=== PATIENT | male | born 1960 | race Caucasian/White ===

== ENCOUNTER 2019-07-20 17:57 | Emergency (ER) | payer BC ==
[2019-07-20 19:08] LABS: BLOOD UREA NITROGEN,BUN 25 mg/dL (7.0-18.0); CARBON DIOXIDE,CO2 28.7 mmol/L (21.0-32.0); CHLORIDE,CL 103 mmol/L (98-107); GLUCOSE RANDOM 222 mg/dL (74-106); POTASSIUM,K 4.4 mmol/L (3.5-5.1); SODIUM,NA 141 mmol/L (136-148)
--- NOTE | 2019-07-20 19:17 | CR ---
INDICATION: Shortness of breath TECHNIQUE: Chest 2 views COMPARISON: June 15, 2019 FINDINGS: Cardiovascular and mediastinum: Heart size and vasculature are normal in caliber and appearance. Lungs and pleural spaces: Lungs are clear. No sign of infiltrate or mass. No sign of pleural effusion. No pneumothorax. Bones and soft tissues: No significant findings. IMPRESSION: No acute findings and no significant changes from the prior exam. Dictated by Josiah Gaines MD @ Jul 20 2019 7:13PM Signed by Dr. Josiah Gaines @ Jul 20 2019 7:15PM
--- NOTE | 2019-07-20 19:19 | EDM.PDOC ---
ED HPI GENERAL MEDICAL PROBLEM - General Chief Complaint: Respiratory Problem Stated Complaint: BREATHING PROBLEM Time Seen by Provider: 07/20/19 18:16 - History of Present Illness INITIAL COMMENTS - FREE TEXT/NARRATIVE: HPI 58-year-old obese male presents for evaluation of several months of chronic nonproductive cough as well as periodic (and apparently worsening) episodes where he will await from his sleep feeling short of breath, patient notes decreased symptoms when he sleeps semi-upright in a chair. No recent weight gain. No history of DVT or PE. * Smoking: denies * Asthma: denies * Recent URI: denies * Meds: denies DIVYA-I and beta blockers * GERD: denies dyspepsia, PPI/ranitidine * Sinus: denies congestion or post-nasal drip * B-Sx: denies night sweats, weight loss, fever M/S/F/SocHx notable for: please see HPI; remainder reviewed with patient and in chart. ROS: Negative constitutional, eye, cardiovascular, pulmonary, GI, , MSK, skin , neurologic, psychiatric, endocrine unless noted in the HPI. Exam Gen: Pleasant, non-toxic appearing, resting comfortably. HEENT: NC, AT, PEERL, EOMI, oropharynx visually normal without postnasal drip. Resp: Clear to auscultation bilaterally, normal work of breathing, no accessory muscle usage. Card: Regular rate and rhythm with no murmurs, rubs, or gallops, extremities warm and well perfused. GI: Non-tender to palpation throughout all quadrants, non-distended, no rebound or guarding. : No suprapubic tenderness to palpation. MSK: No visible deformities, strength and tone without visually appreciable deficit. Skin: Normal color with no visible lesions. Neuro: alert and oriented 3, no facial asymmetry, vision and hearing WNL. Psych: Mood and affect appropriate. Labs / Imaging: WBC 9.44, HB 14.3, d-dimer <0.19, sodium 141, potassium 4.4, glucose 222, troponin <0.050, BNP pending. EKG: SR 10 4 bpm, no ST segment elevations or depressions, no LBBB. CXR: No acute cardiopulmonary disease process. No focal infiltrate, cardiomegaly , rib fractures, or mediastinal widening, lung markings extend to the periphery bilaterally and there are no deep sulci. Radiologist's read pending. MDM Previous chart, nursing note, labs, imaging, and vitals reviewed. A: 58-year-old obese male presents for evaluation of several months of chronic nonproductive cough as well as periodic (and apparently worsening) episodes where he will await from his sleep feeling short of breath, patient notes decreased symptoms when he sleeps semi-upright in a chair. DDx: pneumonia, pericardial effusion, pleural effusion, COPD, asthma, DIVYA inhibitor induced cough, GERD, post viral cough, bronchitis, malignancy/neoplasm , heart failure, foreign body, pertussis, DASH. Evaluation: overall suspect the patients symptoms are secondary to DASH given his shortness of breath that occurs only while supine is resolved by sending out. No clinical features consistent with heart failure. Given a Wells score of 1.5 the negative d-dimer is appropriate for PE rule out/risk stratification. No features consistent with GERD, post viral cough, bronchitis, and on my interpretation of the chest x-ray there are no masses, features of heart failure , or effusions. Patient does not take an DIVYA inhibitor or ARB. Given the absence of any daytime provocation with physical activity doubt unstable angina , by clinical Gestalt as well as heart score the patient is low(er) and is appropriate for outpatient stress testing if necessary. Disposition: patient care transfer to the overnight provider pending chest x- ray read and BNP. Anticipate discharge with instructions for PCP follow-up and recommendation for sleep study. Impression: cough, nocturnal SOP. (please reference below for remainder of encounter information) Wilfredo' (Signs & Sx of DVT - 0, PE is #1 or equally likelihood - 0, HR > 100 - 1.5, immobilization of >=3 days or surgery in last 28 days - 0, prior DVT or PE - 0, hemoptysis - 0, malignancy w/ tx in last 6 mo or palliative - 0). HEART value (Hx - 0, EKG - 0, age - 1, risk factors - 1, troponin - 0; 30 day MACE: less than or equal to 1.7%). chest Pain Score (Numeric/FACES): 3 - Related Data Allergies Allergy/AdvReac Type Severity Reaction Status Date / Time No Known Allergies Allergy Verified 07/20/19 18:23 Home Meds: Home Meds Amitriptyline HCl 75 mg PO BEDTIME 02/12/19 [History] Venlafaxine HCl [Venlafaxine HCl ER] 75 mg PO DAILY 02/12/19 [History] metFORMIN HCl [Metformin HCl] 1,000 mg PO QAM 02/12/19 [History] Penicillin V Potassium 500 mg PO QID 07/20/19 [History] metFORMIN [Glucophage XR] 500 mg PO QPM 07/20/19 [History] Past Medical History HEENT History: Reports: Allergic Rhinitis Other HEENT History: has a partial denture but doesn't wear it Cardiovascular History: Reports: Hypertension Respiratory History: Reports: Asthma Other Respiratory History: will get testing for sleep apnea Gastrointestinal History: Reports: GERD Musculoskeletal History: Reports: Fracture Other Musculoskeletal History: states he has bone spurs in his neck, hx of fx ribs and wrist Psychiatric History: Reports: Anxiety Endocrine/Metabolic History: Reports: Diabetes, Type II, Obesity/BMI 30+ - Infectious Disease History Infectious Disease History: Reports: Chicken Pox, Measles, Mumps - Past Surgical History Head Surgeries/Procedures: Reports: None Cardiovascular Surgical History: Reports: None Respiratory Surgical History: Reports: Thoracentesis Other Respiratory Surgeries/Procedures: hx of multiple fx ribs with thoracentesis GI Surgical History: Reports: Appendectomy, Hernia, Inguinal Other GI Surgeries/Procedures: bilateral inguinal hernia repairs Male Surgical History: Reports: Other (See Below) Other Male Surgeries/Procedures: repair of urethral stricture Endocrine Surgical History: Reports: None Musculoskeletal Surgical History: Reports: Carpal Tunnel Social & Family History - Family History Family Medical History: Noncontributory - Tobacco Use Smoking Status *Q: Former Smoker Used Tobacco, but Quit: Yes Month/Year Tobacco Last Used: 2018 - Caffeine Use Caffeine Use: Reports: Coffee - Recreational Drug Use Recreational Drug Use: No ED ROS GENERAL - Review of Systems Review Of Systems: See Below ED EXAM, GENERAL - Physical Exam Exam: See Below Course - Vital Signs Last Recorded V/S: Last Vital Signs Temp 35.8 C L 07/20/19 18:15 Pulse 104 H 07/20/19 18:15 Resp 22 H 07/20/19 18:15 BP 166/108 H 07/20/19 18:15 Pulse Ox 95 07/20/19 18:15 - Orders/Labs/Meds Orders: Active Orders 24 hr Category Date Time Status EKG Documentation Completion [RC] STAT Care 07/20/19 18:29 Active B-TYPE NATRIURETIC PEPTIDE,BNP [CHEM] Stat Lab 07/20/19 18:40 Received Labs: Laboratory Tests 07/20/19 07/20/19 07/20/19 Range/Units 18:40 18:40 18:40 WBC 9.44 (4.0-11.0) K/uL RBC 5.03 (4.50-5.90) M/uL Hgb 14.3 (13.0-17.0) g/dL Hct 44.2 (38.0-50.0) % MCV 87.9 (80.0-98.0) fL MCH 28.4 (27.0-32.0) pg MCHC 32.4 (31.0-37.0) g/dL RDW Std Deviation 41.4 (28.0-62.0) fl RDW Coeff of Todd 13 (11.0-15.0) % Plt Count 252 (150-400) K/uL MPV 9.90 (7.40-12.00) fL Neut % (Auto) 66.1 (48.0-80.0) % Lymph % (Auto) 25.8 (16.0-40.0) % [place] % (Auto) 7.8 (0.0-15.0) % Eos % (Auto) 0.1 (0.0-7.0) % Baso % (Auto) 0.2 (0.0-1.5) % Neut # (Auto) 6.2 H (1.4-5.7) K/uL Lymph # (Auto) 2.4 (0.6-2.4) K/uL [place] # (Auto) 0.7 (0.0-0.8) K/uL Eos # (Auto) 0.0 (0.0-0.7) K/uL Baso # (Auto) 0.0 (0.0-0.1) K/uL Nucleated RBC % 0.0 /100WBC Nucleated RBCs # 0 K/uL D-Dimer, Quantitative < 0.19 (0.0-0.50) mg/L FEU Sodium 141 (136-148) mmol/L Potassium 4.4 (3.5-5.1) mmol/L Chloride 103 (98-107) mmol/L Carbon Dioxide 28.7 (21.0-32.0) mmol/L BUN 25 H (7.0-18.0) mg/dL Creatinine 1.1 (0.8-1.3) mg/dL Est Cr Clr Drug Dosing 82.72 mL/min Estimated GFR (MDRD) > 60.0 ml/min Glucose 222 H (74-106) mg/dL Calcium 9.2 (8.5-10.1) mg/dL Troponin I < 0.050 (0.000-0.056) ng/mL Departure - Departure Time of Disposition: 19:18 Disposition: Home, Self-Care 01 Clinical Impression: Cough - Discharge Information Referrals: Chelita Kimball PA [Primary Care Provider] - Additional Instructions: You were in seen in the [facility] Emergency Department for evaluation of cough and nighttime shortness breath. The time of your evaluation no clear cause of your symptoms were found, however you are symptoms are strongly suspected to be due to your obstructive sleep apnea. Please follow-up your primary care provider within 2 days for further evaluation care including consideration of a sleep study and possibly a stress test. Please read and follow all of the instructions below. When calling for follow-up care, please make the office aware that this follow- up is from your recent emergency room visit. If for any reason you are refused follow-up, please contact the [facility] Emergency Department at and asked to speak to the emergency department charge nurse. Your care today was limited to identifying and treating emergent medical problems only. Many people have subtle differences in their test results that require follow up with their outpatient physician(s) to correctly determine if this represents a normal variation or concerning abnormality with respect to your specific health. The care given to you today was limited to identifying and treating emergent medical problems - you need to request a copy of all of your medical records from today's visit and follow up with your outpatient physician(s) to review both today's visit and your overall health. If you have any new symptoms or if you are at all concerned about your health please return immediately to the emergency department. Prescriptions: If you are uninsured or have financial difficulties with filling your prescription(s), you may consider using a free pharmacy discount service such as [employer] ([facility]) or [employer] ([employer]). These services allow you to search for a medication on your phone (or computer) and obtain a coupon that usually has a significant discount from the list maier at a pharmacy. Your physician as well as [facility] does not have a financial relationship with either of these services. You may also wish to speak with your physician to determine if lower cost prescriptions are possible. Obtaining primary care: 1. [facility] provides pediatrics (children), family medicine (children, adults, and some obstetrical care), and internal medicine (adults). Further specialty care is also available. Same day appointments are available. They may be contacted at [phone] and are open Tuesday through Tuesday 8 AM to 5 PM. The [facility] are located at [facility], [address] [place] [address]. 2. [facility] offers family medicine, internal medicine, [facility], and further specialty care. [facility] may be contacted at [phone]. [facility] is located at [address] [place] [address]. 3. If you have health insurance, please also contact your insurer for a list of accepting providers under your policy, you may contact these providers for further health care. Occupational health: Work related injuries may consider following up with [facility], . Occupational health services are located at [address] [place] [address] and are open Tuesday through Tuesday from 7: 30 am to 5:00 pm. Obstetrical and Gynecological Care: [facility], , Tuesday through Tuesday 8 AM to 5 PM. [address] [place] [address]. Eyecare: If you have an eye injury you should follow up with your solutions developer or with [facility], at [phone] or [phone] , they are located at [address] [place] [id number]. Dental Care Pardeep Ferrera DDS. [address] [facility].[place], [place]. Ph. [phone] Froylan Ferrera DDS MS. [address] [facility] [address], [place], [place]. Ph. Vipin Ohara DDS. 10 04/[address] [place] [address]. Ph. [phone] Mayank Montanez DDS. [address] [facility] [address] [place], [place]. Ph. [phone] Vinay Herrera DDS PC. [address] [facility] [address] [place], [place]. Ph. [phone] Genie Botello DDS. [address] [facility] [address] [facility]. Ph. [phone] [facility]. [address] [place], [place]. Ph. [phone] [facility]. [address] [place] [address], [place], [place]. Ph. [phone] [facility] [address] [place] [address]. Ph. [phone] [facility]. [address] [place] [address] [address] [place], [place]. Ph. [facility]. [address] [place], [place]. Ph. You were seen in the emergency department today for evaluation of your chronic cough. No clear cause of your cough was identified today during your evaluation. As we discussed, there are many possible causes of long-term coughing, these range from minor but annoying causes - such as acid reflux and allergic postnasal drip - to more serious causes such as fungal infections, heart problems, or even cancer. Therefore, you must follow-up your primary care physician for further evaluation and care. When you follow up with your primary care physician please also review your pending laboratory studies. You may do the following treatments to reduce your symptoms: Setx-lqh-[id number] cough medications containing dextromethorphan may reduce the frequency and severity of your coughing. Please take as directed on the bottle. Please read all warnings on the bottle. Do not take this medication if you have any allergies to any of the ingredients listed on the bottle. Please stay well-hydrated and get adequate rest. If you are a smoker please stop smoking. Aoln-[id number]-[id number] lozenges or tea with honey may be used for sore throat. Please return to the emergency department if any of the following occur: Increasing fever. Worsening cough or a cough that becomes productive of thick sputum. A cough that temporarily gets better and then over the several days get significantly worse. This may occur if you developed a bacterial pneumonia following your viral infection. This rarely occurs and there is no prevention at this point in your infection. Chest pain. Shortness of breath or difficulty breathing. If you are otherwise concerned about your health. Sepsis Event Note - Evaluation Sepsis Screening Result: No Definite Risk - Focused Exam Vital Signs: Vital Signs Temp Pulse Resp BP Pulse Ox 07/20/19 18:15 35.8 C L 104 H 22 H 166/108 H 95 Date Exam was Performed: 07/20/19 Time Exam was Performed: 19:18 - My Orders Last 24 Hours: My Active Orders 07/20/19 18:29 EKG Documentation Completion [RC] STAT 07/20/19 18:40 B-TYPE NATRIURETIC PEPTIDE,BNP [CHEM] Stat - Assessment/Plan Last 24 Hours: My Active Orders 07/20/19 18:29 EKG Documentation Completion [RC] STAT 07/20/19 18:40 B-TYPE NATRIURETIC PEPTIDE,BNP [CHEM] Stat
== END 2019-07-20 19:42 | disposition home or self-care (01) ==
LOC: MW.ED 17:57
DX: R05 Cough (principal); R06.02 Shortness of breath; I10 Essential (primary) hypertension; E11.9 Type 2 diabetes mellitus without complications; E66.9 Obesity, unspecified; Z68.41 Body mass index [BMI] 40.0-44.9, adult; Z87.891 Personal history of nicotine dependence; Z79.84 Long term (current) use of oral hypoglycemic drugs; Z79.899 Other long term (current) drug therapy
CPT/HCPCS: 36415; 71046; 71046-26; 80048; 83880; 84484; 85025; 85379; 93005; 99283; 99284-25

== ENCOUNTER 2019-09-06 17:32 | Emergency (ER) | payer BC ==
[2019-09-06] MEDS ORDERED: Sodium Chloride 0.9% 2.5 ML Syringe FLUSH PRN ×2 (17:41)
[2019-09-06] MEDS ORDERED: Aspirin 81 MG Tab.Chew PO ONE (17:41)
[2019-09-06] MEDS ORDERED: Sodium Chloride 0.9% 10 ML Syringe FLUSH PRN (17:41)
[2019-09-06] MEDS ORDERED: Albuterol/Ipratropium 3.0-0.5 MG/3 ML Neb Soln NEB ONE (17:43)
[2019-09-06] MEDS ORDERED: Dexamethasone 10 MG/ML SDV IVPUSH ONE (17:43)
--- NOTE | 2019-09-06 17:48 | EDM.PDOC ---
<Bj Kennedy - Last Filed: 09/06/19 17:44> ED HPI GENERAL MEDICAL PROBLEM - General Chief Complaint: Respiratory Problem Stated Complaint: TROUBLE BREATHING Time Seen by Provider: 09/06/19 17:40 - History of Present Illness INITIAL COMMENTS - FREE TEXT/NARRATIVE: History of present illness: [Patient presents with dyspnea. Patient states that he has had increasing dyspnea over the past several months and is seen his primary care doctor but he had an episode this afternoon while at home and came to the hospital. He states he is now feeling somewhat better but he is still short of breath. He has a chronic cough nothing is new or worse he denies any leg pain or leg swelling he is not had any fever or chills he did have some chest pressure that was centralized nonradiating prior with the shortness of breath that has now gone no prior history of heart disease but he does have a history of asthma he denies any leg pain or prior blood clots. Nothing seems to make this better or worse he has an inhaler at home and this did not help] Review of systems: As per history of present illness and below otherwise all systems reviewed and negative. Past medical history: As per history of present illness and as reviewed below otherwise noncontributory. Surgical history: As per history of present illness and as reviewed below otherwise noncontributory. Social history: No reported history of drug or alcohol abuse. Family history: As per history of present illness and as reviewed below otherwise noncontributory. Physical exam: HEENT: Atraumatic, normocephalic, pupils reactive, negative for conjunctival pallor or scleral icterus, mucous membranes moist, throat clear, neck supple, nontender, trachea midline. Lungs: No respiratory distress he has some scattered wheezing, breath sounds equal bilaterally, chest nontender. Heart: S1S2, regular, negative for clicks, rubs, or JVD. Abdomen: Soft, nondistended, nontender. Negative for masses or hepatosplenomegaly. Negative for costovertebral tenderness. Pelvis: Stable nontender. Genitourinary: Deferred. Rectal: Deferred. Extremities: Atraumatic, negative for cords or calf pain. Neurovascular unremarkable. Neuro: Awake, alert, oriented. Cranial nerves II through XII unremarkable. Cerebellum unremarkable. Motor and sensory unremarkable throughout. Exam nonfocal. Diagnostics: [] Therapeutics: Aspirin DuoNeb Decadron in the ED [] Impression: Dyspnea and chest pain [] Plan: EKG labs medications for breathing CT angios chest reassess patient. [] Definitive disposition and diagnosis as appropriate pending reevaluation and review of above. - Related Data Allergies Allergy/AdvReac Type Severity Reaction Status Date / Time No Known Allergies Allergy Verified 09/06/19 17:38 Home Meds: Home Meds Amitriptyline HCl 75 mg PO BEDTIME 02/12/19 [History] Venlafaxine HCl [Venlafaxine HCl ER] 75 mg PO DAILY 02/12/19 [History] metFORMIN HCl [Metformin HCl] 1,000 mg PO QAM 02/12/19 [History] metFORMIN [Glucophage XR] 500 mg PO QPM 07/20/19 [History] Losartan/Hydrochlorothiazide [Losartan-HCTZ 100-25 MG] 1 tab PO DAILY 09/06/19 [ History] Past Medical History HEENT History: Reports: Allergic Rhinitis Other HEENT History: has a partial denture but doesn't wear it Cardiovascular History: Reports: Hypertension Respiratory History: Reports: Asthma Other Respiratory History: will get testing for sleep apnea Gastrointestinal History: Reports: GERD Genitourinary History: Reports: None Musculoskeletal History: Reports: Fracture Other Musculoskeletal History: states he has bone spurs in his neck, hx of fx ribs and wrist Neurological History: Reports: None Psychiatric History: Reports: Anxiety Endocrine/Metabolic History: Reports: Diabetes, Type II, Obesity/BMI 30+ Hematologic History: Reports: None Immunologic History: Reports: None Oncologic (Cancer) History: Reports: None Dermatologic History: Reports: None - Infectious Disease History Infectious Disease History: Reports: Chicken Pox, Measles, Mumps - Past Surgical History Head Surgeries/Procedures: Reports: None HEENT Surgical History: Reports: None Cardiovascular Surgical History: Reports: None Respiratory Surgical History: Reports: Thoracentesis Other Respiratory Surgeries/Procedures: hx of multiple fx ribs with thoracentesis GI Surgical History: Reports: Appendectomy, Hernia, Inguinal Other GI Surgeries/Procedures: bilateral inguinal hernia repairs Male Surgical History: Reports: Other (See Below) Other Male Surgeries/Procedures: repair of urethral stricture Endocrine Surgical History: Reports: None Neurological Surgical History: Reports: None Musculoskeletal Surgical History: Reports: Carpal Tunnel Oncologic Surgical History: Reports: None Dermatological Surgical History: Reports: None Social & Family History - Family History Family Medical History: Noncontributory - Tobacco Use Smoking Status *Q: Former Smoker Used Tobacco, but Quit: Yes Month/Year Tobacco Last Used: 1 year - Caffeine Use Caffeine Use: Reports: Coffee, Energy Drinks - Alcohol Use Days Per Week of Alcohol Use: 7 Number of Drinks Per Day: 1 Total Drinks Per Week: 7 - Recreational Drug Use Recreational Drug Use: No ED ROS GENERAL - Review of Systems Review Of Systems: See Below ED EXAM, GENERAL - Physical Exam Exam: See Below EKG INTERPRETATION EKG Interpretation Comments: EKG is normal sinus rhythm with a rate of 103 bpm with normal axis no ischemic changes. Read and interpreted by me Course - Vital Signs Last Recorded V/S: Last Vital Signs Temp 96.4 F L 09/06/19 17:36 Pulse 102 H 09/06/19 19:27 Resp 19 09/06/19 19:27 BP 157/97 H 09/06/19 19:27 Pulse Ox 96 09/06/19 19:27 - Orders/Labs/Meds Orders: Active Orders 24 hr Category Date Time Status Communication Order [RC] STAT Care 09/06/19 18:10 Inactive EKG Documentation Completion [RC] STAT Care 09/06/19 17:42 Active RT Aerosol Therapy [RC] ASDIRECTED Care 09/06/19 17:44 Active Saline Lock Insert [OM.PC] Stat Oth 09/06/19 17:41 Ordered Labs: Laboratory Tests 09/06/19 09/06/19 09/06/19 Range/Units 17:39 17:39 17:39 WBC 10.12 (4.0-11.0) K/uL RBC 4.92 (4.50-5.90) M/uL Hgb 14.4 (13.0-17.0) g/dL Hct 42.3 (38.0-50.0) % MCV 86.0 (80.0-98.0) fL MCH 29.3 (27.0-32.0) pg MCHC 34.0 (31.0-37.0) g/dL RDW Std Deviation 42.3 (28.0-62.0) fl RDW Coeff of Todd 13 (11.0-15.0) % Plt Count 246 (150-400) K/uL MPV 10.10 (7.40-12.00) fL Neut % (Auto) 42.4 L (48.0-80.0) % Lymph % (Auto) 49.3 H (16.0-40.0) % Bibb % (Auto) 7.1 (0.0-15.0) % Eos % (Auto) 0.9 (0.0-7.0) % Baso % (Auto) 0.3 (0.0-1.5) % Neut # (Auto) 4.3 (1.4-5.7) K/uL Lymph # (Auto) 5.0 H (0.6-2.4) K/uL Bibb # (Auto) 0.7 (0.0-0.8) K/uL Eos # (Auto) 0.1 (0.0-0.7) K/uL Baso # (Auto) 0.0 (0.0-0.1) K/uL Nucleated RBC % 0.0 /100WBC Nucleated RBCs # 0 K/uL Sodium 142 (136-148) mmol/L Potassium 3.8 (3.5-5.1) mmol/L Chloride 104 (98-107) mmol/L Carbon Dioxide 27.2 (21.0-32.0) mmol/L BUN 15 (7.0-18.0) mg/dL Creatinine 1.1 (0.8-1.3) mg/dL Est Cr Clr Drug Dosing 81.72 mL/min Estimated GFR (MDRD) > 60.0 ml/min Glucose 117 H (74-106) mg/dL Calcium 9.3 (8.5-10.1) mg/dL Total Bilirubin 0.5 (0.2-1.0) mg/dL AST 38 H (15-37) IU/L ALT 60 (14-63) IU/L Alkaline Phosphatase 60 (46-116) U/L Troponin I < 0.050 (0.000-0.056) ng/mL B-Natriuretic Peptide 153 H (<100) PG/ML Total Protein 7.3 (6.4-8.2) g/dL Albumin 4.1 (3.4-5.0) g/dL Globulin 3.2 (2.6-4.0) g/dL Albumin/Globulin Ratio 1.3 (0.9-1.6) Meds: Medications Discontinued Medications Generic Name Dose Route Start Last Admin Trade Name Freq PRN Reason Stop Dose Admin Albuterol/Ipratropium 3 ml 09/06/19 17:43 09/06/19 17:51 Duoneb 3.0-0.5 Mg/3 Ml NEB 09/06/19 17:44 3 ml ONETIME ONE Administration Aspirin 324 mg 09/06/19 17:41 09/06/19 17:50 Aspirin PO 09/06/19 17:42 324 mg ONETIME ONE Administration Dexamethasone 10 mg 09/06/19 17:43 09/06/19 17:51 Dexamethasone IVPUSH 09/06/19 17:44 10 mg ONETIME ONE Administration Iopamidol 60 ml 09/06/19 18:47 09/06/19 18:48 Isovue-370 (76%) IVPUSH 09/06/19 18:48 60 ml ONETIME STA Administration Sodium Chloride 2.5 ml 09/06/19 17:41 09/06/19 17:51 Saline Flush FLUSH 2.5 ml ASDIRECTED PRN Administration Keep Vein Open Sodium Chloride 10 ml 09/06/19 17:41 09/06/19 17:51 Saline Flush FLUSH 10 ml ASDIRECTED PRN Administration Keep Vein Open Sodium Chloride 2.5 ml 09/06/19 17:41 09/06/19 17:51 Saline Flush FLUSH 2.5 ml ASDIRECTED PRN Administration Keep Vein Open Departure - Departure Disposition: Home, Self-Care 01 Clinical Impression: Acute bronchiolitis - Discharge Information Instructions: Acute Bronchitis, Adult, [id number] Referrals: Rosemary Ortiz MD [Primary Care Provider] - Forms: ED Department Discharge Care Plan Goals: The following information is given to patients seen in the emergency department who are being discharged to home. This information is to outline your options for follow-up care. We provide all patients seen in our emergency department with a follow-up referral. The need for follow-up, as well as the timing and circumstances, are variable depending upon the specifics of your emergency department visit. If you don't have a primary care physician on staff, we will provide you with a referral. We always advise you to contact your personal physician following an emergency department visit to inform them of the circumstance of the visit and for follow-up with them and/or the need for any referrals to a consulting specialist. The emergency department will also refer you to a specialist when appropriate. This referral assures that you have the opportunity for follow-up care with a specialist. All of these measure are taken in an effort to provide you with optimal care, which includes your follow-up. Under all circumstances we always encourage you to contact your private physician who remains a resource for coordinating your care. When calling for follow-up care, please make the office aware that this follow-up is from your recent emergency room visit. If for any reason you are refused follow-up, please contact the [facility] Emergency Department at and asked to speak to the emergency department charge nurse. Patient has bronchodilators at home and we feel the one boost of steroids will be sufficient for this acute bronchiolitis. Sepsis Event Note - Evaluation Sepsis Screening Result: No Definite Risk - Focused Exam Vital Signs: Vital Signs Temp Pulse Resp BP Pulse Ox 09/06/19 19:27 102 H 19 157/97 H 96 09/06/19 18:11 103 H 19 132/86 96 09/06/19 17:36 96.4 F L 109 H 20 159/101 H 96 Date Exam was Performed: 09/06/19 Time Exam was Performed: 17:44 <Milton Trevino - Last Filed: 09/06/19 23:34> Course - Vital Signs Text/Narrative:: 1900 hrs. I accepted the patient in signout from Dr. Kennedy. He is in no acute distress and is markedly improved. After his injection of steroids he wants to go home but because of his persistent tachycardia a CT angios to rule out pulmonary embolus is pending. Departure - Departure Time of Disposition: 19:17 Condition: Good Sepsis Event Note - Focused Exam Date Exam was Performed: 09/06/19 Time Exam was Performed: 23:34
[2019-09-06 18:23] LABS: BLOOD UREA NITROGEN,BUN 15 mg/dL (7.0-18.0); CARBON DIOXIDE,CO2 27.2 mmol/L (21.0-32.0); CHLORIDE,CL 104 mmol/L (98-107); GLUCOSE RANDOM 117 mg/dL (74-106); POTASSIUM,K 3.8 mmol/L (3.5-5.1); SODIUM,NA 142 mmol/L (136-148)
[2019-09-06] MEDS ORDERED: Iopamidol 755 Mg/ML 100 ML Bottle IVPUSH STA (18:47)
--- NOTE | 2019-09-06 19:09 | CT ---
CT chest Technique: Multiple axial sections through the chest were obtained. Intravenous contrast was utilized. Reconstructed coronal and sagittal images were obtained. Findings: Pulmonary arteries are not optimally opacified. Very poor opacification of the aorta is noted. No filling defects are seen within the main pulmonary arteries or segmental branches or proximal subsegmental branches. Smaller distal subsegmental pulmonary emboli could be missed. Aorta shows no aneurysm and contains atherosclerotic calcification. Mediastinum and hilar regions show no adenopathy. No axillary adenopathy is seen. No pericardial thickening is seen. Visualized upper abdominal structures shows nothing acute. Lung window settings were reviewed. No acute parenchymal change is seen within either lung. No pleural effusions are noted. Bone window settings were reviewed. Scattered degenerative change throughout the spine is seen. Several old healed left-sided rib fractures are noted. No acute osseous finding is appreciated. Impression: 1. Slightly less than optimal opacification of the pulmonary arteries. As mentioned above, there is no finding of pulmonary embolism within the main, segmental or proximal subsegmental branches. Difficult to rule out more distal subsegmental pulmonary embolism. 2. Other findings believed to be nonacute as described above. Diagnostic code #2 This report was dictated in MDT
== END 2019-09-06 19:28 | disposition home or self-care (01) ==
LOC: MW.ED 17:32
DX: J21.9 Acute bronchiolitis, unspecified (principal); E11.9 Type 2 diabetes mellitus without complications; I10 Essential (primary) hypertension; J45.909 Unspecified asthma, uncomplicated; K21.9 Gastro-esophageal reflux disease without esophagitis; F41.9 Anxiety disorder, unspecified; E66.9 Obesity, unspecified; Z68.39 Body mass index [BMI] 39.0-39.9, adult; Z79.84 Long term (current) use of oral hypoglycemic drugs; Z87.891 Personal history of nicotine dependence
CPT/HCPCS: 71275; 80053; 83880; 84484; 85025; 93005; 96374; 99285; A9270; J1100; Q9967; 99284; J7620-GY

== ENCOUNTER 2022-11-22 15:45 | Emergency (ER) | payer OTHER, SELFPAY ==
[2022-11-22] MEDS ORDERED: Lactated Ringers 1,000 ML IV SCH ×2 (16:45→18:15)
[2022-11-22 17:40] LABS: APPEARANCE,URINE CLEAR; BILIRUBIN,URINE NEGATIVE (NEGATIVE); COLOR,URINE YELLOW; GLUCOSE,URINE NEGATIVE (NEGATIVE); KETONES,URINE NEGATIVE (NEGATIVE); LEUKOCYTE ESTERASE,URINE NEGATIVE (NEGATIVE); NITRITE,URINE NEGATIVE (NEGATIVE); OCCULT BLOOD,URINE NEGATIVE (NEGATIVE); PH,URINE 5.5 (5.0-8.0); PROTEIN,URINE NEGATIVE (NEGATIVE); UROBILINOGEN,URINE 0.2 EU/dL (<2.0)
[2022-11-22 17:43] LABS: BASOPHILS PERCENT AUTO 0.4 % (0.0-1.5); EOSINOPHILS ABSOLUTE AUTO 0.1 K/uL (0.0-0.7); EOSINOPHILS PERCENT AUTO 1.6 % (0.0-7.0); HEMATOCRIT 43.3 % (38.0-50.0); HEMOGLOBIN 14.9 g/dL (13.0-17.0); LYMPHOCYTES ABSOLUTE AUTO 3.6 K/uL (0.6-2.4); LYMPHOCYTES PERCENT AUTO 40.6 % (16.0-40.0); MEAN CORPUSCULAR HEMOGLOBIN 29.9 pg (27.0-32.0); MEAN CORPUSCULAR HGB CONC 34.4 g/dL (31.0-37.0); MEAN CORPUSCULAR VOLUME 86.8 fL (80.0-98.0); MONOCYTES ABSOLUTE AUTO 0.7 K/uL (0.0-0.8); MONOCYTES PERCENT AUTO 8.3 % (0.0-15.0); NEUTROPHILS ABSOLUTE AUTO 4.4 K/uL (1.4-5.7); NEUTROPHILS PERCENT AUTO 49.1 % (48.0-80.0); NRBC ABSOLUTE 0 K/uL; PLATELET COUNT,PLT 285 K/uL (150-400); RED BLOOD CELL COUNT 4.99 M/uL (4.50-5.90); WHITE BLOOD CELL COUNT,WBC 8.91 K/uL (4.0-11.0)
[2022-11-22 17:49] LABS: INR 1.02 (0.86-1.11)
[2022-11-22 18:05] LABS: LACTIC ACID 1.7 mmol/L (0.4-2.0)
[2022-11-22 18:07] LABS: A/G RATIO 0.9 (0.9-1.6); ALBUMIN 3.8 g/dL (3.4-5.0); BILIRUBIN TOTAL 0.3 mg/dL (0.2-1.0); CALCIUM 9.2 mg/dL (8.5-10.1); CARBON DIOXIDE,CO2 32.3 mmol/L (21.0-32.0); CREATININE 1.5 mg/dL (0.8-1.3); EST CRCL DRUG DOSING (CG) 57.71 mL/min; MAGNESIUM 1.4 mg/dL (1.8-2.4); POTASSIUM,K 3.7 mmol/L (3.5-5.1); PROTEIN TOTAL,TP 7.9 g/dL (6.4-8.2); TSH ULTRASENSITIVE 2.54 uIU/mL (0.36-3.74)
[2022-11-22] MEDS ORDERED: Magnesium Oxide 400 MG Tab PO ONE (18:09)
== END 2022-11-22 19:29 | disposition home or self-care (01) ==
LOC: MW.ED 15:45
DX: R55 Syncope and collapse (principal); E11.9 Type 2 diabetes mellitus without complications; E66.9 Obesity, unspecified; J45.909 Unspecified asthma, uncomplicated; I10 Essential (primary) hypertension; Z79.84 Long term (current) use of oral hypoglycemic drugs; Z79.899 Other long term (current) drug therapy; Z68.35 Body mass index [BMI] 35.0-35.9, adult
CPT/HCPCS: 36415; 71045; 80053; 81003; 83605; 83690; 83735; 83880; 84443; 84484; 85025; 85379; 85610; 87635; 93005; 96360; 96361; 99284; A9270; J7120; 93010; 99283; U0002

== ENCOUNTER 2023-03-25 07:53 | Day surgery (SDC) | payer BC ==
[~2023-03-25 07:53] MED LIST: Lactated Ringers 1,000 ML IV SCH
[2023-03-25] MEDS ORDERED: propofoL 50 ML ONE (08:43)
== END 2023-03-25 10:42 | disposition home or self-care (01) ==
LOC: MW.SDS 07:53
PROVIDERS: ATTEND Surgery
DX: Z12.11 Encounter for screening for malignant neoplasm of colon (principal); D12.6 Benign neoplasm of colon, unspecified; D12.3 Benign neoplasm of transverse colon; K57.90 Diverticulosis of intestine, part unspecified, without perforation or abscess without bleeding; I13.0 Hypertensive heart and chronic kidney disease with heart failure and stage 1 through stage 4 chronic kidney disease, or unspecified chronic kidney disease; I50.9 Heart failure, unspecified; E11.42 Type 2 diabetes mellitus with diabetic polyneuropathy; N18.9 Chronic kidney disease, unspecified; J44.9 Chronic obstructive pulmonary disease, unspecified; K21.9 Gastro-esophageal reflux disease without esophagitis; F41.9 Anxiety disorder, unspecified; I42.8 Other cardiomyopathies; E78.5 Hyperlipidemia, unspecified; E66.9 Obesity, unspecified; Z87.891 Personal history of nicotine dependence; Z68.36 Body mass index [BMI] 36.0-36.9, adult; Z79.84 Long term (current) use of oral hypoglycemic drugs; Z90.49 Acquired absence of other specified parts of digestive tract; Z79.899 Other long term (current) drug therapy
CPT/HCPCS: 45380; 45385; 82947; J2704; J7120

== ENCOUNTER 2023-11-26 08:47 | Emergency (ER) | payer OTHER ==
[2023-11-26] MEDS: Diphtheria,Pertussis(Acell),Tetanus Vaccine 0.5 ML Syringe IM ONE (09:16)
[2023-11-26] MEDS: Lidocaine 1% 10 ML MDV INJECT ONE (09:17)
[2023-11-26] MEDS: Bacitracin Oint 1 GM U/D Packet TOP ONE (09:45)
== END 2023-11-26 09:51 | disposition home or self-care (01) ==
LOC: MW.ED 08:47
DX: S61.012A Laceration without foreign body of left thumb without damage to nail, initial encounter (principal); I10 Essential (primary) hypertension; K21.9 Gastro-esophageal reflux disease without esophagitis; E78.00 Pure hypercholesterolemia, unspecified; E11.9 Type 2 diabetes mellitus without complications; E66.9 Obesity, unspecified; Z79.899 Other long term (current) drug therapy; Z23 Encounter for immunization; Z68.36 Body mass index [BMI] 36.0-36.9, adult; Z79.84 Long term (current) use of oral hypoglycemic drugs; Z79.82 Long term (current) use of aspirin; W26.8XXA Contact with other sharp object(s), not elsewhere classified, initial encounter
CPT/HCPCS: 12002; 90471; 90715; 99282-25; 99283; J3490

== ENCOUNTER 2024-04-03 15:33 | Emergency (ER) | payer OTHER ==
[2024-04-03] MEDS: Ondansetron 4 MG Tab.DIS PO STA (16:23)
[2024-04-03] MEDS: oxyCODONE 5 MG Tab PO STA (16:23)
== END 2024-04-03 17:47 | disposition home or self-care (01) ==
LOC: MW.ED 15:33
DX: S63.502A Unspecified sprain of left wrist, initial encounter (principal); Z75.8 Other problems related to medical facilities and other health care; I10 Essential (primary) hypertension; E78.00 Pure hypercholesterolemia, unspecified; J45.909 Unspecified asthma, uncomplicated; K21.9 Gastro-esophageal reflux disease without esophagitis; E11.9 Type 2 diabetes mellitus without complications; E66.9 Obesity, unspecified; Z79.899 Other long term (current) drug therapy; Z79.82 Long term (current) use of aspirin; W19.XXXA Unspecified fall, initial encounter
CPT/HCPCS: 73110; 73130; 99283; A9270

== ENCOUNTER 2024-08-13 12:18 | Inpatient (IN) | payer OTHER ==
[2024-08-13] MEDS: Sodium Chloride 0.9% 1,000 ML IV ONE ×3 (13:20→13:53)
[2024-08-13 13:25] LABS: BASOPHILS ABSOLUTE AUTO 0.05 K/uL (0.00-0.20); BASOPHILS PERCENT AUTO 0.3 % (0.0-1.0); EOSINOPHILS ABSOLUTE AUTO 0.09 K/uL (0.00-0.45); EOSINOPHILS PERCENT AUTO 0.6 % (0.0-6.0); HEMATOCRIT 38.9 % (42.0-52.0); HEMOGLOBIN 13.3 g/dL (14.0-18.0); IMMATURE GRAN ABSOLUTE AUTO 0.06 K/uL (0.00-0.05); IMMATURE GRAN PERCENT AUTO 0.4 % (0.0-0.4); LYMPHOCYTES ABSOLUTE AUTO 1.99 K/uL (1.00-4.80); LYMPHOCYTES PERCENT AUTO 13.3 % (24.0-44.0); MEAN CORPUSCULAR HEMOGLOBIN 29.6 pg (28.0-32.0); MEAN CORPUSCULAR HGB CONC 34.2 g/dL (32.0-36.0); MEAN CORPUSCULAR VOLUME 86.6 fL (83.0-99.0); MEAN PLATELET VOLUME 9.6 fL (9.4-12.4); MONOCYTES ABSOLUTE AUTO 1.44 K/uL (0.00-0.80); MONOCYTES PERCENT AUTO 9.6 % (0.0-8.0); NEUTROPHILS ABSOLUTE AUTO 11.31 K/uL (1.80-7.70); NEUTROPHILS PERCENT AUTO 75.8 % (41.0-71.0); PLATELET COUNT,PLT 215 K/uL (150-400); RED BLOOD CELL COUNT 4.49 M/uL (4.52-5.90); WHITE BLOOD CELL COUNT,WBC 14.94 K/uL (3.9-11.3)
[2024-08-13] MEDS: Morphine 4 MG/ML Syringe IVPUSH ONE (13:46)
[2024-08-13] MEDS: Ondansetron 4 MG/2 ML SDV IVPUSH ONE (13:47)
[2024-08-13 13:52] LABS: LACTIC ACID 2.2 mmol/L (0.4-2.0)
[2024-08-13 13:59] LABS: A/G RATIO 0.8 (0.9-1.6); BILIRUBIN TOTAL 1.1 mg/dL (0.2-1.0); CALCIUM 8.8 mg/dL (8.5-10.1); CARBON DIOXIDE,CO2 29.7 mmol/L (21.0-32.0); CREATININE 1.3 mg/dL (0.8-1.3); EST CRCL DRUG DOSING (CG) 64.88 mL/min; POTASSIUM,K 3.4 mmol/L (3.5-5.1); PROTEIN TOTAL,TP 6.8 g/dL (6.4-8.2)
[2024-08-13] MEDS: Iopamidol 755 MG/ML 500 ML Multipack Bottle IVPUSH STA (14:25)
[2024-08-13] MEDS: Piperacillin/Tazobactam 3.375 GM in Sodium Chloride 0.9% 100 ML IV ONE (14:39)
[2024-08-13] MEDS: VANCOmycin 2 GM/400 ML 2 GM in Premix Bag 1 BAG IV ONE (15:39)
[2024-08-13] MEDS ORDERED: Ondansetron 4 MG/2 ML SDV IVPUSH PRN (16:48)
[2024-08-13] MEDS ORDERED: Sodium Chloride 0.9% 2.5 ML Syringe FLUSH PRN (16:48)
[2024-08-13] MEDS ORDERED: Naloxone 0.4 MG/ML SDV IVPUSH PRN (16:48)
[2024-08-13] MEDS ORDERED: Sodium Chloride 0.9% 10 ML Syringe FLUSH PRN (16:48)
[2024-08-13] MEDS ORDERED: 50% Dextrose in Water 50 ML Syringe IVPUSH PRN (17:52)
[2024-08-13] MEDS ORDERED: Glucagon,Human Recombinant 1 MG Vial IM PRN (17:52)
[2024-08-13] MEDS ORDERED: Albuterol 8 GM Inhaler INH PRN (18:00)
[2024-08-13] MEDS: Pantoprazole 40 MG in Sodium Chloride 0.9% 10 ML IVPUSH SCH (18:22)
[2024-08-13] MEDS: NS with KCl 40mEq 1,000 ML IV ONE (18:26)
[2024-08-13] MEDS ORDERED: LORazepam 2 MG/ML SDV IVPUSH PRN (19:58)
[2024-08-13] MEDS: Morphine 2 MG/ML SYRINGE IVPUSH PRN (20:01)
[2024-08-13 20:07] LABS: APPEARANCE,URINE CLEAR; BILIRUBIN,URINE NEGATIVE (NEGATIVE); COLOR,URINE YELLOW; GLUCOSE,URINE NEGATIVE (NEGATIVE); KETONES,URINE NEGATIVE (NEGATIVE); LEUKOCYTE ESTERASE,URINE NEGATIVE (NEGATIVE); NITRITE,URINE NEGATIVE (NEGATIVE); OCCULT BLOOD,URINE NEGATIVE (NEGATIVE); PH,URINE 5.5 (5.0-8.0); PROTEIN,URINE NEGATIVE (NEGATIVE); UROBILINOGEN,URINE 0.2 EU/dL (<2.0)
[2024-08-13] MEDS: Piperacillin/Tazobactam 4.5 GM in Sodium Chloride 0.9% 100 ML IV SCH (20:31)
[2024-08-13] MEDS: Amitriptyline 25 MG Tab PO SCH (20:36)
[2024-08-13] MEDS: Insulin Aspart 100 Units/ML 3 ML Pen SUBCUT SCH (20:46)
[2024-08-14] MEDS ORDERED: NS + KCl 20mEq/L 1,000 ML IV SCH (01:00)
[2024-08-14] MEDS: Sodium Chloride 0.9% 1,000 ML IV SCH (02:57)
[2024-08-14 05:51] LABS: BASOPHILS ABSOLUTE AUTO 0.04 K/uL (0.00-0.20); BASOPHILS PERCENT AUTO 0.4 % (0.0-1.0); EOSINOPHILS ABSOLUTE AUTO 0.24 K/uL (0.00-0.45); EOSINOPHILS PERCENT AUTO 2.3 % (0.0-6.0); HEMATOCRIT 36.7 % (42.0-52.0); HEMOGLOBIN 12.1 g/dL (14.0-18.0); IMMATURE GRAN ABSOLUTE AUTO 0.02 K/uL (0.00-0.05); IMMATURE GRAN PERCENT AUTO 0.2 % (0.0-0.4); LYMPHOCYTES ABSOLUTE AUTO 1.33 K/uL (1.00-4.80); LYMPHOCYTES PERCENT AUTO 12.7 % (24.0-44.0); MEAN CORPUSCULAR HEMOGLOBIN 29.5 pg (28.0-32.0); MEAN CORPUSCULAR VOLUME 89.5 fL (83.0-99.0); MEAN PLATELET VOLUME 9.6 fL (9.4-12.4); MONOCYTES ABSOLUTE AUTO 0.89 K/uL (0.00-0.80); MONOCYTES PERCENT AUTO 8.5 % (0.0-8.0); NEUTROPHILS ABSOLUTE AUTO 7.97 K/uL (1.80-7.70); NEUTROPHILS PERCENT AUTO 75.9 % (41.0-71.0); PLATELET COUNT,PLT 181 K/uL (150-400); WHITE BLOOD CELL COUNT,WBC 10.49 K/uL (3.9-11.3)
[2024-08-14 06:10] LABS: CALCIUM 7.9 mg/dL (8.5-10.1); CARBON DIOXIDE,CO2 26.9 mmol/L (21.0-32.0); CREATININE 1.1 mg/dL (0.8-1.3); EST CRCL DRUG DOSING (CG) 76.67 mL/min; MAGNESIUM 2.2 mg/dL (1.8-2.4)
[2024-08-14] MEDS: Folic Acid 1 MG/0.2 ML UD Syringe IV SCH (08:14)
[2024-08-14] MEDS: Metoprolol Succinate 25 MG Tab.ER PO SCH (08:14)
[2024-08-14] MEDS: Thiamine 200 MG/2 ML MDV IVPUSH SCH (08:14)
[2024-08-15 05:47] LABS: BASOPHILS ABSOLUTE AUTO 0.02 K/uL (0.00-0.20); BASOPHILS PERCENT AUTO 0.2 % (0.0-1.0); EOSINOPHILS ABSOLUTE AUTO 0.31 K/uL (0.00-0.45); EOSINOPHILS PERCENT AUTO 3.7 % (0.0-6.0); HEMATOCRIT 36.3 % (42.0-52.0); HEMOGLOBIN 11.6 g/dL (14.0-18.0); IMMATURE GRAN ABSOLUTE AUTO 0.04 K/uL (0.00-0.05); IMMATURE GRAN PERCENT AUTO 0.5 % (0.0-0.4); LYMPHOCYTES ABSOLUTE AUTO 1.32 K/uL (1.00-4.80); LYMPHOCYTES PERCENT AUTO 15.8 % (24.0-44.0); MEAN CORPUSCULAR HEMOGLOBIN 28.9 pg (28.0-32.0); MEAN CORPUSCULAR VOLUME 90.3 fL (83.0-99.0); MEAN PLATELET VOLUME 9.6 fL (9.4-12.4); MONOCYTES ABSOLUTE AUTO 0.63 K/uL (0.00-0.80); MONOCYTES PERCENT AUTO 7.6 % (0.0-8.0); NEUTROPHILS ABSOLUTE AUTO 6.02 K/uL (1.80-7.70); NEUTROPHILS PERCENT AUTO 72.2 % (41.0-71.0); PLATELET COUNT,PLT 229 K/uL (150-400); RED BLOOD CELL COUNT 4.02 M/uL (4.52-5.90); WHITE BLOOD CELL COUNT,WBC 8.34 K/uL (3.9-11.3)
[2024-08-15 06:09] LABS: A/G RATIO 0.7 (0.9-1.6); ALBUMIN 2.4 g/dL (3.4-5.0); BILIRUBIN TOTAL 0.7 mg/dL (0.2-1.0); CALCIUM 7.7 mg/dL (8.5-10.1); CARBON DIOXIDE,CO2 26.4 mmol/L (21.0-32.0); CREATININE 0.9 mg/dL (0.8-1.3); EST CRCL DRUG DOSING (CG) 93.71 mL/min; PHOSPHORUS 1.8 mg/dL (2.6-4.7); POTASSIUM,K 3.8 mmol/L (3.5-5.1)
[2024-08-15] MEDS: Potassium Phosphates 20 MMOLE in Sodium Chloride 0.9% 500 ML IV ONE (08:32)
[2024-08-15] MEDS: Insulin Aspart 100 Units/ML 3 ML Pen SUBCUT SCH (12:17)
[2024-08-15] MEDS: oxyCODONE 5 MG Tab PO PRN (12:34)
[2024-08-15] MEDS: Simethicone 80 MG Tab.Chew PO PRN (19:35)
[2024-08-15] MEDS: Albuterol/Ipratropium 3.0-0.5 MG/3 ML Neb Soln NEB PRN (19:36)
[2024-08-16 06:04] LABS: BASOPHILS ABSOLUTE AUTO 0.03 K/uL (0.00-0.20); BASOPHILS PERCENT AUTO 0.5 % (0.0-1.0); EOSINOPHILS ABSOLUTE AUTO 0.28 K/uL (0.00-0.45); EOSINOPHILS PERCENT AUTO 4.5 % (0.0-6.0); HEMATOCRIT 34.2 % (42.0-52.0); HEMOGLOBIN 11.3 g/dL (14.0-18.0); IMMATURE GRAN ABSOLUTE AUTO 0.05 K/uL (0.00-0.05); IMMATURE GRAN PERCENT AUTO 0.8 % (0.0-0.4); LYMPHOCYTES ABSOLUTE AUTO 1.14 K/uL (1.00-4.80); LYMPHOCYTES PERCENT AUTO 18.2 % (24.0-44.0); MEAN CORPUSCULAR HEMOGLOBIN 29.7 pg (28.0-32.0); MEAN CORPUSCULAR VOLUME 89.8 fL (83.0-99.0); MEAN PLATELET VOLUME 9.4 fL (9.4-12.4); MONOCYTES ABSOLUTE AUTO 0.54 K/uL (0.00-0.80); MONOCYTES PERCENT AUTO 8.6 % (0.0-8.0); NEUTROPHILS ABSOLUTE AUTO 4.23 K/uL (1.80-7.70); NEUTROPHILS PERCENT AUTO 67.4 % (41.0-71.0); PLATELET COUNT,PLT 209 K/uL (150-400); RED BLOOD CELL COUNT 3.81 M/uL (4.52-5.90); WHITE BLOOD CELL COUNT,WBC 6.27 K/uL (3.9-11.3)
[2024-08-16 06:42] LABS: A/G RATIO 0.7 (0.9-1.6); ALBUMIN 2.3 g/dL (3.4-5.0); BILIRUBIN TOTAL 0.4 mg/dL (0.2-1.0); CALCIUM 8.1 mg/dL (8.5-10.1); CARBON DIOXIDE,CO2 29.9 mmol/L (21.0-32.0); CREATININE 0.9 mg/dL (0.8-1.3); EST CRCL DRUG DOSING (CG) 93.71 mL/min; MAGNESIUM 1.8 mg/dL (1.8-2.4); PHOSPHORUS 2.3 mg/dL (2.6-4.7); POTASSIUM,K 3.7 mmol/L (3.5-5.1); PROTEIN TOTAL,TP 5.8 g/dL (6.4-8.2)
[2024-08-16] MEDS: Allopurinol 100 MG Tab PO SCH (09:11)
[2024-08-16] MEDS: Venlafaxine 37.5 MG Cap.ER PO SCH (09:11)
== END 2024-08-16 11:10 | disposition home or self-care (01) | DRG 872 ==
LOC: MW.ED 12:18 → MW.MS 15:34
PROVIDERS: ADMIT Internal Medicine; ATTEND Internal Medicine
DX: A41.9 Sepsis, unspecified organism (principal); A04.72 Enterocolitis due to Clostridium difficile, not specified as recurrent; Z68.36 Body mass index [BMI] 36.0-36.9, adult; I10 Essential (primary) hypertension; F10.10 Alcohol abuse, uncomplicated; I25.5 Ischemic cardiomyopathy; R65.20 Severe sepsis without septic shock; E11.9 Type 2 diabetes mellitus without complications; E78.00 Pure hypercholesterolemia, unspecified; J45.909 Unspecified asthma, uncomplicated; M47.9 Spondylosis, unspecified; K21.9 Gastro-esophageal reflux disease without esophagitis; F41.9 Anxiety disorder, unspecified; E66.9 Obesity, unspecified; Z98.890 Other specified postprocedural states; Z90.49 Acquired absence of other specified parts of digestive tract; Z79.899 Other long term (current) drug therapy; Z79.84 Long term (current) use of oral hypoglycemic drugs; Z87.891 Personal history of nicotine dependence
CPT/HCPCS: 36415; 71046; 71046-26; 73660-26-T5; 73660-T5; 74177; 74177-26; 80048; 80053; 81003; 82947; 83605; 83690; 83735; 84100; 85025; 87040; 87045; 87046; 87324; 87449; 87899; 93005; 93010; 96361; 96365; 96375; 99285; 99285-25; A9270-GY; J1815-GY; J2270; J2405; J2470; J2543; J3372; J3411; J3480; J3490; J7030; J7040; Q9967; U0002